=== PATIENT | male | born 1995 | race Caucasian/White ===

== ENCOUNTER 2019-03-26 15:39 | Emergency (ER) | payer MEDICAID, OTHER ==
[2019-03-26] MEDS ORDERED: LIDOCAINE 2%-EPI 1:100000 20 ML MDV SUBQ STA (16:05)
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
[2019-03-26] MEDS ORDERED: cephALEXin 250 MG CAPSULE PO STA (16:40)
[2019-03-26 17:29] VITALS: BP 133/72
== END 2019-03-26 17:30 | disposition home or self-care (01) ==
LOC: ED 15:39
DX: S62.635B Displaced fracture of distal phalanx of left ring finger, initial encounter for open fracture (principal); S60.413A Abrasion of left middle finger, initial encounter; S50.811A Abrasion of right forearm, initial encounter; V86.59XA Driver of other special all-terrain or other off-road motor vehicle injured in nontraffic accident, initial encounter; Y93.I9 Activity, other involving external motion; Y92.009 Unspecified place in unspecified non-institutional (private) residence as the place of occurrence of the external cause
CPT/HCPCS: 73140; 99283; A9270

== ENCOUNTER 2020-11-17 12:18 | Outpatient (CLI) | payer MEDICAID, OTHER | END 2020-11-17 12:19 | disposition EMS.NT | LOC: EMS 12:18 | DX: R07.81 Pleurodynia (principal); S00.81XA Abrasion of other part of head, initial encounter; S20.311A Abrasion of right front wall of thorax, initial encounter; Y35.93XA Legal intervention, means unspecified, suspect injured, initial encounter ==

== ENCOUNTER 2020-11-17 12:51 | Emergency (ER) | payer MEDICAID, OTHER ==
[2020-11-17] MEDS ORDERED: IBUPROFEN 600 MG TABLET PO STA (12:53)
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
[2020-11-17 13:48] VITALS: BP 120/61
--- NOTE | 2020-11-17 14:19 | CT Report ---
PROCEDURE: HEAD WO INDICATIONS: head/neck/chest/back injury TECHNIQUE: Noncontrast 4.5 mm thick angled axial sections acquired from the foramen magnum to the vertex. For r adiation dose reduction, the following was used: automated exposure control, adjustment of mA and/or kV according to patient size. COMPARISON: None. FINDINGS: Image quality: Excellent. CSF spaces: Basal cisterns are patent. No extra-axial fluid collections. Ventricles are normal in size and shape. Brain: No midline shift. No intracranial masses or hemorrhage. Blum-white matter interface is norm al. Skull and face: Calvarium and visualized facial bones are intact, without suspicious lesions. Sinuses: Visualized sinuses and mastoids are clear. IMPRESSION: No CT evidence of acute intracranial pathology. No acute skull fracture. Reviewed by: Zhao Cardona MD on 11/17/2020 2:18 PM PST Approved by: Zhao Cardona MD on 11/17/2020 2:18 PM PST Station ID: [id number]
--- NOTE | 2020-11-17 14:21 | CT Report ---
PROCEDURE: CERVICAL SPINE WO INDICATIONS: head/neck/chest/back injury TECHNIQUE: Noncontrast 3 mm thick sections acquired from the skull base to the T4 level. Sagittal and coronal r eformats were then constructed. For radiation dose reduction, the following was used: automated exp osure control, adjustment of mA and/or kV according to patient size. COMPARISON: None. FINDINGS: Image quality: Excellent. Bones: No fractures or dislocations. Visualized superior ribs are intact. Soft tissues: Prevertebral soft tissues are normal in thickness. No paravertebral hematomas. No ap ical pneumothoraces. IMPRESSION: No acute cervical spine fracture or dislocation. Reviewed by: Zhao Cardona MD on 11/17/2020 2:20 PM PST Approved by: Zhao Cardona MD on 11/17/2020 2:20 PM PST Station ID: [id number]
--- NOTE | 2020-11-17 14:37 | CT Report ---
PROCEDURE: LUMBAR SPINE WO INDICATIONS: head/neck/chest/back injury TECHNIQUE: Noncontrast 3 mm thick sections acquired from the T12 level to the sacrum. Sagittal and coronal refo rmats were constructed. For radiation dose reduction, the following was used: automated exposure co ntrol, adjustment of mA and/or kV according to patient size. COMPARISON: Lumbar spine radiograph dated 01/26/[address] of abdomen and pelvis dated 01/13/2016. FINDINGS: Image quality: Excellent. Bones: No acute vertebral body compression fractures. No suspicious lytic or blastic bony lesions. Central spinal caliber is of normal overall caliber. Chronic appearing bilateral pars defects are no brooke at L5 level. Minimal anterolisthesis of L5 on S1 is seen. Right lamina cleft at L5 level is also seen with posterior arch defect throughout sacral spine most consistent with congenital spina bifida occulta. Multiple Schmorl's node are noted involving inferior endplate of T11, inferior endplate of L 1, superior endplate of L3, and anterior superior endplate of S1. T12-L1: Normal in appearance. L1-L2: Normal in appearance. L2-L3: Normal in appearance. L3-L4: Normal in appearance. L4-L5: Normal in appearance. L5-S1: Degenerative endplate changes are seen. No significant disc bulge, canal stenosis or neurofo raminal narrowing. Soft tissues: No retroperitoneal masses or hematomas. Visualized aorta is normal in caliber. IMPRESSION: 1. No acute lumbar spine fracture or dislocation. 2. Bilateral pars defects at L5 level with minimal anterolisthesis of L5 on S1. 3. Right posterior lamina cleft at L5 level and posterior arch defects throughout sacral spine most c onsistent with congenital spina bifida occulta. 4. Multiple Schmorl's node scattered in lower thoracic and lumbar spine vertebral body with degenerat hiral changes at L5-S1 level. No significant disc bulge, canal stenosis or neural foraminal narrowing. Reviewed by: Zhao Cardona MD on 11/17/2020 2:36 PM PST Approved by: Zhao Cardona MD on 11/17/2020 2:36 PM PST Station ID: [id number]
--- NOTE | 2020-11-17 14:44 | CT Report ---
PROCEDURE: CHEST WO INDICATIONS: head/neck/chest/back injury TECHNIQUE: Noncontrast 5 mm thick sections acquired from the pulmonary apices to the posterior costophrenic angl es. 7 mm thick coronal and sagittal MIP reformats were then acquired. For radiation dose reduction, the following was used: automated exposure control, adjustment of mA and/or kV according to patient size. COMPARISON: Chest radiograph dated 10/14/2015 FINDINGS: Image quality: Excellent. Lungs and pleura: No acute air space opacities. Minimal dependent atelectasis in posterior aspect of bilateral lower lung hardy are seen. No pleural effusions or pneumothorax. Central and peripheral airways are patent and normal in caliber. Mediastinum: Heart size is normal. No pericardial effusion. No mediastinal adenopathy by size crit eria. Thoracic aorta and central pulmonary arteries are normal in size. Esophagus is normal in otto tab. No hiatal hernia. Bones and chest wall: No suspicious bony lesions. No vertebral body compression fractures. No axil arthur or supraclavicular adenopathy by size criteria. The thyroid is normal in size. Abdomen: Visualized upper abdominal solid organs and bowel loops appear normal in the absence of con trast. IMPRESSION: 1. No acute solid organ injury is seen in chest. 2. No gross acute rib fracture is seen. No acute fracture or dislocation is seen in thoracic spine. 3. No pulmonary contusion, pleural effusion or pneumothorax. Airway is patent. Reviewed by: Zhao Cardona MD on 11/17/2020 2:43 PM PST Approved by: Zhao Cardona MD on 11/17/2020 2:43 PM PST Station ID: [id number]
== END 2020-11-17 13:48 | disposition home or self-care (01) ==
LOC: ED 12:51
DX: S20.219A Contusion of unspecified front wall of thorax, initial encounter (principal); S30.0XXA Contusion of lower back and pelvis, initial encounter; S00.81XA Abrasion of other part of head, initial encounter; W03.XXXA Other fall on same level due to collision with another person, initial encounter
CPT/HCPCS: 70450; 71250; 72125; 72131; 99282; 99284; A9270